=== PATIENT | female | born 1995 | race African-American/Black ===

== ENCOUNTER 2019-04-05 07:57 | Emergency (ER) | payer BC, OTHER ==
[~2019-04-05] VITALS: Ht 160 cm; Wt 77.1 kg
[2019-04-05] MEDS ORDERED: VENTOLIN HFA 1818 GM INH (09:57)
[2019-04-05] MEDS ORDERED: TESSALON PERLE100 MG PO (09:57)
[2019-04-05 10:00] VITALS: BP 115/79
== END 2019-04-05 10:00 | disposition home or self-care (01) ==
LOC: ER 07:57
DX: J06.9 Acute upper respiratory infection, unspecified (principal); Z88.0 Allergy status to penicillin

== ENCOUNTER 2020-12-17 09:57 | Emergency (ER) | payer BC, OTHER ==
[~2020-12-17] VITALS: Ht 160 cm; Wt 70.3 kg
[~2020-12-17 09:57] MED LIST: TESSALON PERLE100 MG PO; VENTOLIN HFA 1818 GM INH
[2020-12-17 10:53] VITALS: BP 104/68
== END 2020-12-17 11:00 | disposition home or self-care (01) ==
LOC: ER 09:57
PROVIDERS: Student in an Organized Health Care Education/Training Program
DX: U07.1 COVID-19 (principal); J06.9 Acute upper respiratory infection, unspecified; Z79.51 Long term (current) use of inhaled steroids; Z79.899 Other long term (current) drug therapy; Z88.0 Allergy status to penicillin